=== PATIENT | female | born 1955 | race Caucasian/White ===

== ENCOUNTER 2024-01-25 09:12 | Outpatient (CLI) | payer MEDICARE, MEDICAID ==
[~2024-01-25 09:12] MED LIST: DIAZ10TA4 PO; DIPH25CA83 PO; GABA-530 PO; HYDR-4353 PO; IBUP-1984 PO; METH500T PO; OMEP20CA4 PO; THY60T PO
== END 2024-01-25 23:59 | disposition home or self-care (01) ==
LOC: MRI 09:12
PROVIDERS: ATTEND Podiatrist Foot & Ankle Surgery
DX: M19.071 Primary osteoarthritis, right ankle and foot (principal); M72.2 Plantar fascial fibromatosis; L60.0 Ingrowing nail; M77.41 Metatarsalgia, right foot; G58.8 Other specified mononeuropathies; M20.11 Hallux valgus (acquired), right foot; T81.31XA Disruption of external operation (surgical) wound, not elsewhere classified, initial encounter; Y84.8 Other medical procedures as the cause of abnormal reaction of the patient, or of later complication, without mention of misadventure at the time of the procedure; Y92.89 Other specified places as the place of occurrence of the external cause
CPT/HCPCS: 73718

== ENCOUNTER 2024-11-17 10:33 | Outpatient (CLI) | payer MEDICARE, MEDICAID ==
[2024-11-14 14:07] LABS: CREATININE 0.99 MG/DL (0.40-0.90); TOTAL CARBON DIOXIDE 26.5 MMOL/L (24-32); eGFR 55 ML/MIN
[2024-11-17] MEDS ORDERED: iohexol 300mg/ml 100ml inj. ONE (10:44)
--- NOTE | 2024-11-18 13:03 | RADIOLOGY REPORT ---
CLINICAL INFORMATION: Right lower quadrant abdominal pain. TECHNIQUE: Axial CT images of the abdomen and pelvis were obtained after the uneventful administration of 100 mL Omnipaque 300 IV contrast. Coronal and sagittal reformatted images were obtained, reviewed, and stored. All CT scans at this medical facility are performed using dose modulation techniques as appropriate to a performed exam including the following: Automated exposure control was utilized; adjustment of the MA and/or KV according to patient size; and use of iterative reconstruction technique. CTDIvol = 29.96 mGy DLP = 1374.2 mGy-cm COMPARISON: None FINDINGS: Lung bases: Hepatic steatosis. Liver: Unremarkable. No abnormal density or focal lesion. Biliary: No calcified gallstones or biliary ductal dilatation. Spleen: Unremarkable. Pancreas: Unremarkable. No inflammatory changes, ductal dilatation, or mass identified. Adrenal glands: Unremarkable. No mass. Kidneys: No hydronephrosis. Multiple small low-attenuation lesions are seen in both kidneys, likely cysts, although too small to characterize. Aorta/Vascular: Moderate atherosclerotic calcification. No abdominal aortic aneurysm. Retroperitoneum: No mass or lymphadenopathy. Bowel/mesentery: Nonspecific nondilated fluid-filled small bowel loops. No small bowel obstruction. Appendix is visualized and measures up to 7 mm in thickness, at the upper limits of normal. No periappendiceal stranding is seen to suggest acute appendicitis. There is sigmoid diverticulosis with questionable minimal adjacent stranding, possible mild, uncomplicated diverticulitis. There is liquid stool in the right colon. Pelvic organs: Uterus is surgically absent. Bladder: Underdistended and not well evaluated. Abdominal wall: There is a small defect in the deep fascia near the junction of the right rectus abdominis muscle and right transversus abdominis and internal and external oblique muscles in the right lower abdomen/ pelvis, with superficial fascia remaining intact at the level of the defect. There is a fluid-filled structure in this location measuring up to 1.5 x 3.1 x 3.0 cm, without visualized connection to small bowel loops to suggest a herniated loop of bowel, possibly nonspecific fluid collection such as chronic hematoma or chronic inflammatory collection. There also appear to be vascular structures coursing into this defect. Bones: No acute fracture or focal intraosseous lesion. IMPRESSION: 1. Defect in the right lateral ventral abdominal wall involving the deep fascia, with superficial fascia remaining intact and with a fluid collection interposed between the superficial and deep fascia in this location. No visualized communication with bowel to suggest a herniated loop of bowel. Possible chronic hematoma or other chronic fluid collection. Correlate with clinical findings. If clinically indicated, ultrasound may be helpful to further characterize. There also appear to be vascular structures coursing into the area of the defect/partial hernia. 2. Appendix is visualized and measures at the upper limits of normal in thickness with no periappendiceal stranding to suggest acute appendicitis. Correlate with clinical findings. Early appendicitis can not be completely excluded in the appropriate clinical setting. 3. Sigmoid diverticulosis with questionable minimal stranding adjacent to the sigmoid colon. Possible very mild uncomplicated sigmoid diverticulitis in the appropriate clinical setting. 4. Nonspecific nondilated fluid-filled small bowel loops. Findings may be seen with ileus or enteritis in the appropriate clinical setting. No small bowel obstruction. 5. Additional nonacute findings as described above.
== END 2024-11-17 23:59 | disposition home or self-care (01) ==
LOC: RAD 10:33
PROVIDERS: ATTEND Family Medicine
DX: K57.30 Diverticulosis of large intestine without perforation or abscess without bleeding (principal); K76.0 Fatty (change of) liver, not elsewhere classified; I25.10 Atherosclerotic heart disease of native coronary artery without angina pectoris; R10.31 Right lower quadrant pain
CPT/HCPCS: 36415; 74177; 80053; Q9967

== ENCOUNTER 2024-12-23 14:38 | Outpatient (CLI) | payer MEDICARE, MEDICAID ==
[2024-12-22 16:13] LABS: CREATININE 1.00 MG/DL (0.40-0.90); TOTAL CARBON DIOXIDE 25.1 MMOL/L (24-32)
[2024-12-22 16:14] LABS: eGFR 55 ML/MIN
[2024-12-23] MEDS ORDERED: iohexol 300mg/ml 100ml inj. ONE (14:54)
--- NOTE | 2024-12-23 15:43 | RADIOLOGY REPORT ---
Indication: DVTRCLI OF LG INT W/O PERFORATION OR ABSCESS W/O BLEEDING Comparison: CT CT ABDOMEN PELVIS on DOS: 11/17/24 Technique: Helical axial scans were performed through the abdomen and pelvis without intravenous contrast. Subsequently, coronal and sagittal reformations were obtained. Dose lowering techniques have been used including automated exposure control and adjustment of mA and/or kv according to patient size. FINDINGS: Limited evaluation of the vasculature and solid organs due to lack of intravenous contrast. LUNGS BASES: Clear LIVER: Normal noncontrast appearance of the liver SPLEEN: Normal GALLBLADDER: Normal PANCREAS: Normal ADRENAL GLANDS: Normal KIDNEYS: No hydronephrosis or obstructing renal stone. scattered too small to characterize hypoattenuating foci. GI: No bowel dilation or wall thickening. Stable appearance of the appendix in the upper limits of normal in caliber. LYMPH NODES: Normal VASCULAR STRUCTURES: Atherosclerotic calcification of the abdominal aorta and its major branches. BLADDER: Normal PELVIC ORGAN: Normal FREE AIR OR FREE FLUID: Small volume free fluid. OSSEOUS STRUCTURES: Mild degenerative changes of the spine. SOFT TISSUES: Unchanged fluid density structure in the right lateral ventral abdominal wall involving deep fascial defect, measuring up to 3.4 cm. DLP is 1216.1 mGy-cm. CTDI vol is 25.1 mGy. IMPRESSION: 1. Unchanged fluid density structure in the right lateral ventral abdominal wall involving deep fascial defect, measuring up to 3.4 cm. 2. No acute abnormality on noncontrast CT abdomen or pelvis.
== END 2024-12-23 23:59 | disposition home or self-care (01) ==
LOC: RAD 14:38
PROVIDERS: ATTEND Family Medicine
DX: I70.0 Atherosclerosis of aorta (principal); R10.31 Right lower quadrant pain; M47.814 Spondylosis without myelopathy or radiculopathy, thoracic region; R18.8 Other ascites
CPT/HCPCS: 36415; 74177; 80053; Q9967